=== PATIENT | male | born 1985 | race African-American/Black ===

== ENCOUNTER 2016-12-17 05:59 | Emergency (ER) | payer OTHER ==
[~2016-12-17] VITALS: Ht 172.7 cm; Wt 74.3 kg
[~2016-12-17 05:59] MED LIST: CATAPRES0.1 MG PO; CLEOCIN300 MG PO; FLEXERIL10 MG PO; MAGNESIUM CITR296 M1 PO; METHadone HCl PO; MILK OF MAGN PO; NAPROXEN500 MG PO; PREDNISONE20 MG PO; TRAZODONE HCL50 MG PO; ULTRAM50 MG PO
[2016-12-17 06:54] LABS: EOSINOPHIL (%) 3.7 % (0-5); EOSINOPHIL COUNT 0.2 K/uL (0-0.3); HEMATOCRIT 44.9 % (38.0-50.0); IMMATURE GRANULOCYTE (%) 0.2 % (0.0-0.7); LYMPHOCYTE COUNT 2.3 K/uL (1.0-2.8); MCH 31.5 PG (29.0-34.0); MONOCYTE (%) 7.2 % (3-12); MONOCYTE COUNT 0.4 K/uL (0-0.8); NEUTROPHIL (%) 41.7 % (45-76); RBC DIS.WIDTH-CV 12.4 % (11.8-14.6); RBC DIS.WIDTH-SD 41.1 % (39-53); RED BLOOD COUNT 4.99 M/uL (4.00-5.50); WHITE BLOOD COUNT 4.9 K/uL (4.1-10.2)
[2016-12-17 07:03] LABS: D-DIMER ELISA < 150.00 ng/mLDDU (<230)
[2016-12-17 07:06] LABS: CHLORIDE 105 mEq/L (99-109); POTASSIUM 3.8 mEq/L (3.7-5.4); SODIUM 143 mEq/L (136-147)
[2016-12-17 07:07] LABS: GLUCOSE 115 mg/dL (70-99)
[2016-12-17 07:09] LABS: ANION GAP 16 MEQ/L (2-14)
[2016-12-17 07:11] LABS: GFR ESTIMATE (CALCULATED) > 59 mL/min/
[2016-12-17 07:12] LABS: UREA NITROGEN (BUN) 8 mg/dL (9-23)
[2016-12-17 07:15] LABS: TROP-I INTERPRETATION NEGATIVE; TROPONIN-I < 0.01 ng/mL (0.0-0.30)
[2016-12-17 08:03] LABS: MEAN PLAT.VOLUME 10.3 uM^3 (9.0-12.4); PLAT.SUFFICIENCY ADEQUATE; PLATELET COUNT 182 K/uL (156-360)
[2016-12-17 09:43] LABS: TROP-I INTERPRETATION NEGATIVE; TROPONIN-I < 0.01 ng/mL (0.0-0.30)
[2016-12-17] MEDS ORDERED: MOTRIN800 MG PO (09:57)
[2016-12-17 10:15] VITALS: BP 116/62
== END 2016-12-17 10:16 | disposition home or self-care (01) ==
LOC: EME 05:59
PROVIDERS: Emergency Medicine
DX: R07.89 Other chest pain (principal); R05 Cough; R06.00 Dyspnea, unspecified; F17.200 Nicotine dependence, unspecified, uncomplicated
CPT/HCPCS: 71020; 80048; 84484; 85025; 85379; 93005; 99281; 99285

== ENCOUNTER 2017-01-29 19:19 | Inpatient (IN) | payer OTHER ==
[~2017-01-29] VITALS: Ht 172.7 cm; Wt 76.5 kg
[~2017-01-29 19:19] MED LIST changes: +MOTRIN800 MG PO
[2017-01-29 20:26] LABS: HEMATOCRIT 52.5 % (38.0-50.0); MCH 32.5 PG (29.0-34.0); MCHC 34.3 G/DL (30.0-36.0); MCV 94.9 FL (86-99); PLATELET COUNT 250 K/uL (156-360); RBC DIS.WIDTH-CV 12.9 % (11.8-14.6); RBC DIS.WIDTH-SD 45.5 % (39-53); RED BLOOD COUNT 5.53 M/uL (4.00-5.50)
[2017-01-29 20:39] LABS: CHLORIDE 100 mEq/L (99-109); SODIUM 142 mEq/L (136-147)
[2017-01-29 20:41] LABS: GLUCOSE 154 mg/dL (70-99)
[2017-01-29 20:42] LABS: ANION GAP 15 MEQ/L (2-14)
[2017-01-29 20:43] LABS: TOTAL BILIRUBIN 0.8 mg/dL (0.0-1.0)
[2017-01-29 20:45] LABS: ALKALINE PHOSPHATASE 87 IU/L (3-129); GFR ESTIMATE (CALCULATED) > 59 mL/min/ (58.99-99999)
[2017-01-29 20:46] LABS: UREA NITROGEN (BUN) 11 mg/dL (9-23)
[2017-01-29 20:49] LABS: ADD MIUA? YES; BILIRUBIN NEGATIVE; BLOOD SMALL; COLOR STRAW ((YELLOW)); GLUCOSE (STRIP) 50; KETONES NEGATIVE; LEUKOCYTES NEGATIVE; NITRITE NEGATIVE; PROTEIN (STRIP) 30; SPECIFIC GRAVITY 1.006 (1.000-1.030); UROBILINOGEN 0.2 MG/DL (0.2-1.0)
[2017-01-29 20:55] LABS: ADD MEDTOX COMMENT Y; AMPHETAMINE NEGATIVE (500 ng/mL); BACTERIA NONE SEEN /HPF; BARBITURATES NEGATIVE (200 ng/mL); BENZODIAZEPINES PRESUMPTIVE POSITIVE (150 ng/mL); COCAINE PRESUMPTIVE POSITIVE (150 ng/mL); EPITHELIAL CELLS RARE /HPF; GRANULAR CASTS 0-5 /LPF; INTERNAL CONTROLS VALID? YES; METHADONE NEGATIVE (200 ng/mL); METHAMPHETAMINE NEGATIVE (500 ng/mL); MUCUS TRACE /LPF; OPIATES (MORPHINE) NEGATIVE (100 ng/mL); OXYCODONE NEGATIVE (100 ng/mL); PHENCYCLIDINE NEGATIVE (25 ng/mL); PROPOXYPHENE NEGATIVE (300 ng/mL); RED BLOOD CELLS 0-5 /HPF (0-5); THC CANNABINOIDS NEGATIVE (50 ng/mL); TRICYCLIC ANTIDEPRESSANTS NEGATIVE (300 ng/mL); UCUL ADDED? NO; WHITE BLOOD CELLS 0-5 /HPF (0-5)
[2017-01-29 21:20] LABS: BENZODIAZEPINES, URINE SCREEN POSITIVE (200 ng/mL)
[2017-01-29 21:20] LABS: BASE EXCESS -0.4 mEq/L (-3 to +3); BICARBONATE 26.4 mEq/L (22-26); CARBOXY HGB 3.1 % (0-5); COMMENTS - BLOOD GASES C+; DEVICE VENT; FI02 60 %; MECHANICAL RATE 16 resp/min; METHEMOGLOBIN 1.3 % (0-1.5); MODE A/C; PCO2 50 mm Hg (35-45); PEEP 5 CM/H20; PO2 204 mm Hg (80-100); SITE LR; TIDAL VOLUME 500 ML; TOTAL RESP RATE 19 resp/min; pH 7.33 (7.35-7.45)
[2017-01-30] VITALS (22 sets, daily range): BP systolic 104–149; BP diastolic 62–103
[2017-01-30 04:06] LABS: METH RESISTANT S AUREUS PCR NEGATIVE (NEGATIVE)
[2017-01-30 04:07] LABS: PROBE CHECK PASS; SPECIMEN PROCESSING CONTROL PASS
[2017-01-30 11:40] LABS: EOSINOPHIL (%) 0.5 % (0-5); HEMATOCRIT 40.3 % (38.0-50.0); IMMATURE GRANULOCYTE (%) 0.8 % (0.0-0.7); IMMATURE GRANULOCYTE COUNT 0.1 K/uL; INSTRUMENT ABS NEUTROPHIL CT 5.9 K/uL; LYMPHOCYTE COUNT 1.4 K/uL (1.0-2.8); MCH 32.1 PG (29.0-34.0); MCHC 34.7 G/DL (30.0-36.0); MCV 92.4 FL (86-99); MONOCYTE (%) 10.8 % (3-12); MONOCYTE COUNT 0.9 K/uL (0-0.8); NEUTROPHIL (%) 71.1 % (45-76); NEUTROPHIL COUNT 5.9 K/uL (1.8-6.4); RBC DIS.WIDTH-CV 12.8 % (11.8-14.6); RBC DIS.WIDTH-SD 43.8 % (39-53); WHITE BLOOD COUNT 8.3 K/uL (4.1-10.2)
[2017-01-30 11:43] LABS: RED BLOOD COUNT 4.36 M/uL (4.00-5.50)
[2017-01-30 12:03] LABS: ANION GAP 9 MEQ/L (2-14); CHLORIDE 106 MEQ/L (99-109); MAGNESIUM 1.6 mg/dl (1.3-2.7); POTASSIUM 3.8 MEQ/L (3.7-5.4); SAMPLE HEMOLYSIS CHECK 1; SAMPLE ICTERIC CHECK 0; SAMPLE LIPEMIA CHECK 0; SODIUM 140 MEQ/L (136-147); UREA NITROGEN (BUN) 10 mg/dL (9-23)
[2017-01-30 12:07] LABS: GFR ESTIMATE (CALCULATED) > 59 mL/min/ (58.99-99999); GLUCOSE 94 mg/dL (70-99)
[2017-01-30 12:33] LABS: HEMATOLOGY COMMENT 1 SMEAR COMPATIBLE; MEAN PLAT.VOLUME 10.2 uM^3 (9.0-12.4); PLAT.SUFFICIENCY ADEQUATE
[2017-01-30 12:34] LABS: PLATELET COUNT 168 K/uL (156-360)
[2017-01-31] VITALS (10 sets, daily range): BP systolic 113–166; BP diastolic 72–94
[2017-01-31 05:41] LABS: EOSINOPHIL (%) 1.5 % (0-5); EOSINOPHIL COUNT 0.1 K/uL (0-0.3); HEMATOCRIT 39.8 % (38.0-50.0); IMMATURE GRANULOCYTE (%) 0.3 % (0.0-0.7); INSTRUMENT ABS NEUTROPHIL CT 4.5 K/uL; LYMPHOCYTE COUNT 1.8 K/uL (1.0-2.8); MCH 31.4 PG (29.0-34.0); MCHC 33.9 G/DL (30.0-36.0); MCV 92.6 FL (86-99); MEAN PLAT.VOLUME 10.4 uM^3 (9.0-12.4); MONOCYTE (%) 10.4 % (3-12); MONOCYTE COUNT 0.7 K/uL (0-0.8); NEUTROPHIL (%) 62.6 % (45-76); NEUTROPHIL COUNT 4.5 K/uL (1.8-6.4); PLATELET COUNT 179 K/uL (156-360); RBC DIS.WIDTH-CV 12.4 % (11.8-14.6); WHITE BLOOD COUNT 7.1 K/uL (4.1-10.2)
[2017-01-31 06:02] LABS: ALKALINE PHOSPHATASE 48 IU/L (3-129); ANION GAP 8 MEQ/L (2-14); CHLORIDE 102 MEQ/L (99-109); GFR ESTIMATE (CALCULATED) > 59 mL/min/ (58.99-99999); GLUCOSE 85 mg/dL (70-99); MAGNESIUM 1.8 mg/dl (1.3-2.7); POTASSIUM 3.7 MEQ/L (3.7-5.4); SAMPLE HEMOLYSIS CHECK 0; SAMPLE ICTERIC CHECK 0; SAMPLE LIPEMIA CHECK 0; SODIUM 138 MEQ/L (136-147); TOTAL BILIRUBIN 1.8 MG/DL (0.0-1.0); UREA NITROGEN (BUN) 6 mg/dL (9-23)
[2017-02-01 00:04] VITALS: BP 140/83
[2017-02-01 04:08] VITALS: BP 143/96
[2017-02-01 06:22] LABS: EOSINOPHIL (%) 2.7 % (0-5); EOSINOPHIL COUNT 0.2 K/uL (0-0.3); HEMATOCRIT 42.5 % (38.0-50.0); IMMATURE GRANULOCYTE (%) 0.2 % (0.0-0.7); INSTRUMENT ABS NEUTROPHIL CT 3.6 K/uL; LYMPHOCYTE COUNT 1.5 K/uL (1.0-2.8); MCH 32.8 PG (29.0-34.0); MEAN PLAT.VOLUME 10.3 uM^3 (9.0-12.4); MONOCYTE (%) 10.5 % (3-12); MONOCYTE COUNT 0.6 K/uL (0-0.8); NEUTROPHIL (%) 60.3 % (45-76); NEUTROPHIL COUNT 3.6 K/uL (1.8-6.4); PLATELET COUNT 201 K/uL (156-360); RBC DIS.WIDTH-CV 12.1 % (11.8-14.6); RBC DIS.WIDTH-SD 40.2 % (39-53); RED BLOOD COUNT 4.67 M/uL (4.00-5.50)
[2017-02-01 06:53] LABS: ANION GAP 9 MEQ/L (2-14); CHLORIDE 102 MEQ/L (99-109); GFR ESTIMATE (CALCULATED) > 59 mL/min/ (58.99-99999); GLUCOSE 91 mg/dL (70-99); POTASSIUM 3.9 MEQ/L (3.7-5.4); SAMPLE HEMOLYSIS CHECK 0; SAMPLE ICTERIC CHECK 0; SAMPLE LIPEMIA CHECK 0; SODIUM 139 MEQ/L (136-147); UREA NITROGEN (BUN) 10 mg/dL (9-23)
[2017-02-01 06:56] LABS: MAGNESIUM 2.2 mg/dl (1.3-2.7)
[2017-02-01 08:00] VITALS: BP 129/79
[2017-02-01 12:00] VITALS: BP 147/90
[2017-02-01 16:00] VITALS: BP 135/70
[2017-02-01] MEDS ORDERED: TRAZODONE HCL50 MG PO (16:43)
== END 2017-02-01 18:07 | disposition home or self-care (01) | DRG 917 ==
LOC: EME 19:19 → 4WEST 22:01 → EDOF 22:01 → ENRESERV 22:07 → 4WEST 01-30 02:41 → UNDODEPER 01-30 03:28 → 4WEST 01-31 09:40 → ENRESERV 01-31 09:49 → 5SOUTH 01-31 15:47 → ENPENDDIS 02-01 16:45 → 5SOUTH 02-01 18:07
PROVIDERS: Emergency Medicine Emergency Medical Services; Specialist; Surgery
PROC: 5A1935Z Respiratory Ventilation, Less than 24 Consecutive Hours (ICD-10-PCS; principal; 2017-01-29)
PROC: 0BH17EZ Insertion of Endotracheal Airway into Trachea, Via Natural or Artificial Opening (ICD-10-PCS; 2017-01-29)
PROC: HZ2ZZZZ Detoxification Services for Substance Abuse Treatment (ICD-10-PCS; 2017-01-29)
PROC: 0XH633Z Insertion of Infusion Device into Right Upper Extremity, Percutaneous Approach (ICD-10-PCS; 2017-01-29)
DX: T40.5X1A Poisoning by cocaine, accidental (unintentional), initial encounter (principal); J96.00 Acute respiratory failure, unspecified whether with hypoxia or hypercapnia; R56.9 Unspecified convulsions; F14.23 Cocaine dependence with withdrawal; F10.229 Alcohol dependence with intoxication, unspecified; F11.10 Opioid abuse, uncomplicated; F13.10 Sedative, hypnotic or anxiolytic abuse, uncomplicated; E87.2 Acidosis; F43.20 Adjustment disorder, unspecified; F90.9 Attention-deficit hyperactivity disorder, unspecified type; G47.00 Insomnia, unspecified; I95.9 Hypotension, unspecified; N28.9 Disorder of kidney and ureter, unspecified; K76.89 Other specified diseases of liver; F32.9 Major depressive disorder, single episode, unspecified; F41.9 Anxiety disorder, unspecified; F17.200 Nicotine dependence, unspecified, uncomplicated; Y90.6 Blood alcohol level of 120-199 mg/100 ml; Z91.19 Patient's noncompliance with other medical treatment and regimen
CPT/HCPCS: 36600; 70450; 71010; 80048; 80053; 81003; 82803; 83735; 84100; 84999; 85025; 85027; 87070; 87077; 87147; 87181; 87186; 87205; 87641; 93005; 94002; 94003; 94640; 94640 76; 94799; 99202; 99281; 99285; G0480; J1630; J1644; J2060; J2250; J2310; J2405; J2704; J3010; J3411; J3475; J7030; J7040; S0028